=== PATIENT | female | born 1960 | race Caucasian/White ===

== ENCOUNTER → 2020-08-02 12:05 | Outpatient (CLI) | payer BC, SELFPAY ==
--- NOTE | ~2020-08-02 | XR_ITS ---
XR foot LT min 3V DATE: 08/02/2020 16:57 INDICATION: Fifth metatarsal fracture follow up TECHNIQUE: 4 views COMPARISON: None FINDINGS: There is a plate and screws along the fracture of the distal shaft of the fifth metatarsal bone. Fracture line is no longer evident, presumably healed. No other fracture or dislocation. Hallux valgus and bunion deformity. Mild plantar calcaneal enthesopathy. IMPRESSION: ORIF fifth metatarsal shaft fracture Hallux valgus and bunion deformity Mild plantar calcaneal enthesopathy Reviewed, dictated and finalized at location A.
== END ==
PROVIDERS: PCP Internal Medicine; Visit Provider Podiatrist Foot & Ankle Surgery
DX: S92.352D Displaced fracture of fifth metatarsal bone, left foot, subsequent encounter for fracture with routine healing (principal); M20.12 Hallux valgus (acquired), left foot; M77.32 Calcaneal spur, left foot; X58.XXXA Exposure to other specified factors, initial encounter
CPT/HCPCS: 73630

== ENCOUNTER → 2020-08-31 11:16 | Outpatient (CLI) | payer BC, SELFPAY ==
--- NOTE | ~2020-08-31 | XR_ITS ---
XR foot LT standing 2V DATE: 08/31/2020 11:46 INDICATION: Left fifth metatarsal fracture TECHNIQUE: 3 standing views COMPARISON: 08/02/2020 left foot FINDINGS: There is a plate and screws along the fifth metatarsal shaft. Hallux valgus and bunion deformity. No fracture or dislocation, periosteal reaction or bone destruction. Slight plantar calcaneal spur. IMPRESSION: Internally fixated fifth metatarsal shaft fracture Hallux valgus and bunion deformity Slight plantar calcaneal enthesopathy Reviewed, dictated and finalized at location A.
== END ==
PROVIDERS: PCP Internal Medicine; Visit Provider Podiatrist Foot & Ankle Surgery
DX: S92.352A Displaced fracture of fifth metatarsal bone, left foot, initial encounter for closed fracture (principal); M20.12 Hallux valgus (acquired), left foot; M21.612 Bunion of left foot; M77.32 Calcaneal spur, left foot
CPT/HCPCS: 73620

== ENCOUNTER 2023-04-28 01:33 | Day surgery (SDC) | payer OTHER, SELFPAY ==
[2023-04-17 10:29] VITALS: BMI 21.7
--- NOTE | 2023-04-27 19:32 | P.HP_ITS ---
History of Present Illness History of Present Illness Consent: Risks, benefits, and alternatives have been discussed and questions answered. Patient agrees to proceed with procedure. Chief complaint: neoplasm screening Narrative: Carla Clinton is a 62 year old female who is referred for colon cancer screening. Her sister had colon cancer in her 50's Review of Systems Review of Systems: All systems reviewed & are unremarkable except as noted in HPI and below PMFSH Past Medical History Medical History (Updated 04/28/23 @ 10:25 by Gómez Leyva MD) HTN (hypertension) Social History Social History Smoking packs per day: 0.75 Smoking cigarettes per day: 15.0 Years smoked: 15 Smoking pack-years: 11.25 Smoking status: Former smoker Tobacco type: cigarettes Alcohol intake: current Drinks per week: 6 Alcohol use details: alcohol on weekends Substance use: never Substance use type: does not use Living arrangements: with family Spiritual care concerns: No Meds Home Medications and Allergies Home Medications Medication Instructions Recorded Confirmed Type calcium carb 300 mg-D3 800 2 tablet PO DAILY 04/17/23 04/17/23 History unit-mag ox 25 mg-coppersmith helper 0.5 mg-gwen-Zn tablet (Caltrate + D3 Plus Minerals) ezetimibe 10 mg tablet 10 mg PO DAILY 04/17/23 04/17/23 History lisinopril 40 mg tablet 40 mg PO DAILY 04/17/23 04/17/23 History multivitamin with minerals-folic 0.4 tablet PO DAILY 04/17/23 04/17/23 History acid 0.4 mg tablet tumeric 100 mg-nataliya 150 mg-olive 1 cap PO DAILY 04/17/23 04/17/23 History 50 mg-oreg 150 mg-caprylate capsule Allergies Allergy/AdvReac Type Severity Reaction Status Date / Time No Known Allergies Allergy Unknown Verified 04/28/23 10:13 Exam Const: General: alert Orientation/consciousness: patient oriented x3 Resp: Auscultation: clear to auscultation bilaterally Cardio: Rhythm: regular rhythm GI: GI Palp: Yes Soft to palpation and No Tenderness to palpation present (GI) Neuro: General: patient oriented x3 Assessment and Plan Assessment and plan (1) Colon cancer screening: Code(s): Z12.11 - Encounter for screening for malignant neoplasm of colon Status: Acute Assessment and Plan: Colonoscopy with possible biopsy or polypectomy or cautery or injection of substances.
[2023-04-28 10:15] VITALS: BP 107/71; PULSE 64; RESP 18; TEMP 36.2; O2SAT 100
--- NOTE | 2023-04-28 10:25 | P.PNAN_ITS ---
Anes - Initial Pre Proc Eval Procedure: Operation Date: 04/28/23 11:00 Proposed Procedures p Screening Colonoscopy - Clint العلي MD Date/Time: 04/28/23 10:25 Surgeon: Clint العلي MD Pre Op Diagnosis: neoplasm screening Patient Data Age: 62 Gender: F Height: 1.57 m Weight: 48.7 kg Last Vital Signs Temp 36.2 C L 04/28/23 10:15 Pulse 64 04/28/23 10:15 Resp 18 04/28/23 10:15 BP 107/71 04/28/23 10:15 Pulse Ox 100 04/28/23 10:15 O2 Del Method Room Air 04/28/23 10:15 Allergies Allergy/AdvReac Type Severity Reaction Status Date / Time No Known Allergies Allergy Unknown Verified 04/28/23 10:13 Home Medications Medication Instructions Recorded Confirmed Type calcium carb 300 mg-D3 800 2 tablet PO DAILY 04/17/23 04/17/23 History unit-mag ox 25 mg-copy director 0.5 mg-gwen-Zn tablet (Caltrate + D3 Plus Minerals) ezetimibe 10 mg tablet 10 mg PO DAILY 04/17/23 04/17/23 History lisinopril 40 mg tablet 40 mg PO DAILY 04/17/23 04/17/23 History multivitamin with minerals-folic 0.4 tablet PO DAILY 04/17/23 04/17/23 History acid 0.4 mg tablet tumeric 100 mg-nataliya 150 mg-olive 1 cap PO DAILY 04/17/23 04/17/23 History 50 mg-oreg 150 mg-caprylate capsule Patient hx anesthesia problems: none Family hx anesthesia problems: none Results Review: All pre-operative results and documents have been reviewed as part of the pre- operative evaluation. [facility] Past Medical History Medical History (Updated 04/28/23 @ 10:25 by Gómez Leyva MD) HTN (hypertension) Social History Social History Smoking packs per day: 0.75 Smoking cigarettes per day: 15.0 Years smoked: 15 Smoking pack-years: 11.25 Smoking status: Former smoker Tobacco type: cigarettes Alcohol intake: current Drinks per week: 6 Alcohol use details: alcohol on weekends Substance use: never Substance use type: does not use Living arrangements: with family Spiritual care concerns: No Anes - Eval Final PreProcedure Day of Procedure 04/28/23 10:25 Patient weight: thin Heart: regular rate and rhythm Lungs: clear to auscultation Airway: Mallampati scale class II Last oral intake: >/= 8 hours ASA classification: II Emergent: no Anesthetic plan: proceed Anesthesia type and monitoring: general GIVS and standard monitoring Results Review: All pre-operative results and documents have been reviewed as part of the pre- operative evaluation. Informed Consent: The patient's anesthetic plan and its attendant risks and benefits were discussed with the patient/family/POA. Questions were solicited and answers provided to the satisfaction of the patient/family/POA.
[2023-04-28] MEDS: LACTATED RINGERS 1,000 ML 150 ML IV CONT (10:26)
[2023-04-28] MEDS: SIMETHICONE ORAL SUSPENSION 20 MG/0.3 ML 30 ML BOTTLE 0.6 ML IRRIGATION (11:01)
[2023-04-28 11:11] VITALS: BP 109/64; PULSE 65; RESP 20; O2SAT 97
[2023-04-28 11:21] VITALS: BP 111/58; PULSE 56; RESP 18; O2SAT 99
[2023-04-28 11:31] VITALS: BP 109/68; PULSE 59; RESP 20; O2SAT 99
== END 2023-04-28 11:41 | disposition home or self-care (01) ==
PROVIDERS: PCP Internal Medicine; Visit Provider Internal Medicine Gastroenterology
PROC: 0DJD8ZZ Inspection of Lower Intestinal Tract, Via Natural or Artificial Opening Endoscopic (ICD-10-PCS; CPT 45378; principal; 2023-04-28 11:00)
DX: Z12.11 Encounter for screening for malignant neoplasm of colon (principal); K64.8 Other hemorrhoids; Z80.0 Family history of malignant neoplasm of digestive organs; I10 Essential (primary) hypertension; Z87.891 Personal history of nicotine dependence
CPT/HCPCS: 45378; J2704; J7120